=== PATIENT | male | born 1995 | race Caucasian/White ===

== ENCOUNTER 2022-03-18 09:33 | Emergency (ER) | payer OTHER, SELFPAY ==
[2022-03-18] VITALS (11 sets, daily range): BP systolic 140–171; BP diastolic 98–111; PULSE 63–81; RESP 13–26; TEMP 36.9; O2SAT 96–100
--- NOTE | ~2022-03-18 | XR_ITS ---
EXAMINATION: XR chest 2V DATE: 03/18/2022 10:20 INDICATION: Chest pain. Dyspnea on exertion. TECHNIQUE: Frontal and lateral views of the chest were obtained. COMPARISON: None. FINDINGS: The chest demonstrates clear lungs without pneumonia, pleural effusion, or pneumothorax. Th e heart size is normal. IMPRESSION: 1. No acute cardiopulmonary disease. Reviewed, dictated and finalized at location B.
--- NOTE | 2022-03-18 09:39 | ECG_ITS ---
Measurements Intervals [place] Rate: 79 P: 33 AL: 143 QRS: 47 QRSD: 101 T: 20 QT: 358 QTc: 411 Interpretive Statements SINUS RHYTHM WITH SINUS ARRHYTHMIA MINIMAL Q WAVES- INFERIOR LEADS BORDERLINE T WAVE ABNORMALITY- ANT/INF LEADS BASELINE ARTIFACT- I, II, III, AVR BORDERLINE ECG Electronically Signed On 03-18-2022 10:06:16 CDT by Beny Perales D.O.
--- NOTE | 2022-03-18 09:53 | ED.CHESTPAIN ---
HPI - Chest Pain General Chief Complaint: Chest Pain Stated Complaint: chest pressure Time Seen by Provider: 03/18/22 09:37 Source: patient and RN notes reviewed Mode of arrival: ambulatory Limitations: no limitations History of Present Illness HPI narrative: 27-year-old male presenting to the emergency department for evaluation of left-sided chest pain. Patient states symptoms have been ongoing for the past few weeks. Patient does describe left-sided chest pain that is worsened with deep inspiration. Patient reports the pain as sharp and radiates to his left shoulder. Patient states at work he has also noticed increased exertional shortness of breath. When patient ambulates he states that he is more out of breath than normal. Patient did have follow-up at an outside hospital including chest x-ray and EKG and was told that the work-up was normal. Patient presents emerged from today complaining of worsening symptoms. Patient denies any associated lower extremity edema or calf tenderness. Patient does report history of cleft palate but denies any other significant past medical history. Patient has no prior history of PE or DVT. Patient has never had a stress test. Patient states he is not diabetic. Related Data Home Medications Medication Instructions Recorded Confirmed albuterol sulfate INHALATION 03/18/22 buspirone 15 mg BID 03/18/22 hydroxyzine HCl 03/18/22 trazodone 03/18/22 Allergies Allergy/AdvReac Type Severity Reaction Status Date / Time No Known Allergies Allergy Verified 03/18/22 09:41 Review of Systems Review of Systems: CONSTITUTIONAL: Denies fever, chills, or sweats. EYES: Denies visual changes, redness, or discharge. ENT: Denies rhinorrhea, congestion, sore throat, or otalgia. CARDIOVASCULAR: Left-sided chest pain RESPIRATORY: See HPI GASTROINTESTINAL: Denies abdominal pain, nausea, vomiting, or diarrhea. GENITOURINARY: Denies dysuria or hematuria. SKIN: Denies rash or itching. MUSCULOSKELETAL: Denies back pain, joint pain, or myalgia. NEUROLOGIC: Denies headache, numbness, or weakness. [facility] Family History Family History (Updated 12/23/11 @ 16:12 by DOCTOR UNKNOWN) Other Cerebrovascular accident Diabetes mellitus Family history of arthritis Family history of cardiovascular disease Family history of gout Family history of malignant neoplasm Family history of seizure disorder Hypertension Exam Narrative: APPEARANCE: Well appearing, no pain, no distress, well-nourished. HEAD: normocephalic, atraumatic. EYES: PERRLA/EOMI, conjunctivae clear. NOSE: Normal no drainage NECK: Supple. No adenopathy, no masses. RESPIRATORY: Airway patent, respirations nonlabored. Clear to auscultation bilaterally, no rales, rhonchi, wheezing. CARDIOVASCULAR: Regular rate and rhythm without murmurs rubs or gallops. Reproducible left-sided chest pain with palpation ABDOMINAL: Soft, nontender, nondistended, normal bowel sounds MUSCULOSKELETAL: Moves all extremities. Strength/ROM intact, No edema, No calf tenderness. NEURO: Alert. Cranial nerves II through XII intact. Grossly intact SKIN: Warm, dry. Normal Color Course Course Emergency Course: No significant abnormalities for CBC or CMP. Serial troponins were not elevated. BNP and D-dimer are not elevated. Patient symptoms are consistent with pleuritic chest pain. Patient was updated on the treatment for home and on reasons to return to the emergency department. Patient was also encouraged have close follow-up with his primary care physician. Vital Signs Vital signs: Vital Signs Temperature 98.5 F 03/18/22 09:37 Pulse Rate 81 03/18/22 09:37 Respiratory Rate 16 03/18/22 09:37 Blood Pressure 171/111 H 03/18/22 09:37 Pulse Oximetry 100 03/18/22 09:37 Temperature 98.5 F 03/18/22 09:37 Pulse Rate 72 03/18/22 14:06 Respiratory Rate 16 03/18/22 14:06 Blood Pressure 140/98 H 03/18/22 14:06 Pulse Oximetry 99 03/18/22 1
[2022-03-18 09:57] LABS: Basophils Percent Auto 0.4 % (0.2-1.2); Eosinophils Percent Auto 0.2 % (0-4.4); Hematocrit 49.1 % (42.0-52.0); Hemoglobin 16.4 g/dL (14.0-18.0); Immature Granulocyte Absolute 0.04 K/mm3 (0.00-0.031); Immature Granulocyte Percent A 0.4 % (0-0.5); Lymphocytes Absolute Auto 0.98 K/mm3 (0.9-3.2); Lymphocytes Percent Auto 9.6 % (18.3-44.2); Mean Corpuscular HGB Conc 33.4 g/dl (32-36); Mean Corpuscular Hemoglobin 30.3 pg (26-34); Mean Corpuscular Volume 90.8 fl (80-100); Mean Platelet Volume 10.2 fl (7.4-10.4); Monocytes Absolute Auto 0.8 K/mm3 (0.1-0.6); Monocytes Percent Auto 7.9 % (2.6-8.5); Neutrophils Absolute Auto 8.3 K/mm3 (1.3-6.7); Neutrophils Percent Auto 81.5 % (45.5-73.1); Platelet Count Result 283 k/mm3 (150-375); Red Blood Count 5.41 M/mm3 (4.6-6.20); Red Cell Distribution Width 13.2 % (11.5-14.5); White Blood Count 10.2 K/mm3 (4.5-10.0)
[2022-03-18] MEDS: ASPIRIN 81 MG CHEWABLE TABLET 324 MG PO (10:00)
[2022-03-18 10:07] LABS: INR 1.1; Prothrombin Time 13.5 Seconds (11.1-14.7)
[2022-03-18 10:08] LABS: Partial Thromboplastin Time 27.1 SECONDS (22.3-36.8)
[2022-03-18 10:09] LABS: Alanine Aminotransferase 41 U/L (4-50); Albumin Level 4.5 g/dL (3.5-5.1); Alkaline Phosphatase 109 U/L (38-126); Anion Gap 8 mmol/L (8-16); Aspartate Amino Transferase 34 U/L (17-59); Bilirubin,Total 1.1 mg/dL (0.2-1.3); Blood Urea Nitrogen 8 mg/dL (9-20); Calcium 9.3 mg/dL (8.4-10.2); Carbon Dioxide 26 mmol/L (22-30); Chloride 103 mmol/L (98-107); Estimated CRCL calculation 124 ml/min; Estimated Glomerular Filt Rate > 60; Glucose 101 mg/dL (65-110); Lipase 84 U/L (23-300); Potassium 3.8 mmol/L (3.4-5.0); Sodium 137 mmol/L (137-145)
[2022-03-18 10:10] LABS: D Dimer 0.43 ug/mL (<0.48)
[2022-03-18 10:19] LABS: Troponin I < 0.012 ng/mL (0.000-0.034)
[2022-03-18 11:08] LABS: NT Pro B Type Natriuretic Pept 78 pg/mL (5-100)
[2022-03-18 13:24] LABS: Troponin I < 0.012 ng/mL (0.000-0.034)
== END 2022-03-18 14:08 | disposition home or self-care (01) ==
PROVIDERS: Emergency Provider Emergency Medicine; PCP Nurse Practitioner Family
DX: R07.9 Chest pain, unspecified (principal); R94.31 Abnormal electrocardiogram [ECG] [EKG]
CPT/HCPCS: 36415; 71046; 80053; 83690; 83880; 84484; 85025; 85380; 85610; 85730; 93005; 99284; A9270